=== PATIENT | female | born 1980 | race African-American/Black ===

== ENCOUNTER 2017-12-06 18:48 | Emergency (ER) | payer MEDICAID ==
[~2017-12-06] VITALS: Ht 167.6 cm; Wt 113.4 kg
[2017-12-06] MEDS ORDERED: Norco 5mg/325mg tab ORAL ONE (20:00)
--- NOTE | 2017-12-06 20:31 | Emergency Room Report ---
History of Present Illness General Chief Complaint: General Complaint Source: Patient Present Illness HPI 37-year-old female presents to the emergency department complaining of bilateral knee pain that is 8 out of 10 in severity with associated swelling 1 week. Patient reports symptoms exacerbated upon ordered amount of walking lately. Patient denies trauma or fall she denies erythema, increased temperature palpation or recent open wounds. She reports intermittent swelling of her ankles. She denies history of high blood pressure. Patient also has a second complaint of 10 out of 10 in severity acute onset of left upper molar pain 3 days. Patient reports that she had cavity that required feeling that she never received. Patient reports tenderness to the tooth she denies swelling of the gums. Denies fevers or chills. Denies swollen tender lymph nodes. Denies paresthesias. She denies posterior calf pain. Allergies: Coded Allergies: No Known Allergies (Unverified , 12/06/17) Patient History Past Medical History: see triage record Past Surgical History: none Pertinent Family History: none Now: No Reviewed Nursing Documentation: PMH: Agreed; PSxH: Agreed Nursing Documentation-PMH Past Medical History: No History, Except For Review of Systems All Other Systems: negative except mentioned in HPI Physical Exam Vital Signs Date Time Temp Pulse Resp B/P (MAP) Pulse Ox O2 Delivery O2 Flow Rate FiO2 12/06/17 18:54 98.3 82 20 99 Room Air 98.2 Sp02 EP Interpretation: reviewed, normal General Appearance: no apparent distress, alert, GCS 15, non-toxic Head: normocephalic, atraumatic ENT: hearing grossly normal, normal voice, TMs + canals normal, uvula midline, moist mucus membranes, nasal congestion, other - TTP to the 1st upper molar on the left side. no fluctuance about the gum line. tenderness to percussion. Neck: full range of motion Respiratory: lungs clear, normal breath sounds, speaking full sentences Cardiovascular #1: regular rate, rhythm, no edema, normal capillary refill Musculoskeletal: back normal, gait/station normal, normal range of motion, non- tender, swelling - Bilateral anterior knees, palpable effusion, no increased laxity of the joints, no erythema, no open wounds, no palpable pulse posteriorly , FROM, no clicking or grinding. Neurologic: alert, oriented x3, responsive, motor strength/tone normal, sensory intact, normal gait, speech normal, grossly normal Psychiatric: judgement/insight normal Skin: normal color, no rash, warm/dry, well hydrated Medical Decision Making PA Attestation Dr. Sterling is my supervising Physician whom patient management has been discussed with. Diagnostic Impression: Primary Impression: Bilateral knee effusions Additional Impression: Acute pulpitis ER Course 37-year-old female presents to the emergency department complaining of bilateral knee pain that is 8 out of 10 in severity with associated swelling 1 week. Patient reports symptoms exacerbated upon ordered amount of walking lately. Patient denies trauma or fall she denies erythema, increased temperature palpation or recent open wounds. She reports intermittent swelling of her ankles. She denies history of high blood pressure. Patient also has a second complaint of 10 out of 10 in severity acute onset of left upper molar pain 3 days. Patient reports that she had cavity that required feeling that she never received. Patient reports tenderness to the tooth she denies swelling of the gums. Denies fevers or chills. Denies swollen tender lymph nodes. Denies paresthesias. She denies posterior calf pain. Ddx considered but are not limited to Fracture, dislocation, contusion, Sprain/ Strain/Spasm, dental abscess, orbital cellulitis, d/l tooth, dental pain. trigeminal neuralgia. Vital signs: are WNL, pt. is afebrile H&PE are most consistent with musculoskeletal injury will perform imaging to r/ o fractures/dislocations. ORDERS: - X-ray Knees Bilateral 3 views each - negative for fx, Dislocation, or significant soft tissue injury, --- Effusions noted bilaterally -per preliminary read in ED, and signed by JOVON Cuello, my supervising physician has reviewed, and agrees with my interpretation. ED INTERVENTIONS: - Pain medication PO - Antonio wrap applied to the right knee by principal technical writer Daniela. Pt. remains neurovascularly intact. -Antonio wrap applied to the left knee by principal technical writer Daniela. Pt. remains neurovascularly intact. DISCHARGE: At this time pt. is stable for d/c to home. Will provide printed patient care instructions, and any necessary prescriptions. Care plan and follow up instructions have been discussed with the patient prior to discharge. Other X-Ray Diagnostic Results Other X-Ray Diagnostic Results #1: X-Ray ordered: Right Knee # of Views/Limited Vs Complete: 3 View Indication: Pain EP Interpretation: Yes PA Xray: Interpretation reviewed, by supervising MD, and agrees with findings. Interpretation: no dislocation, no soft tissue swelling, no fractures, other - Effusion noted. Impression: Other - effusion Electronically Signed by: Kell Cuello PA-C Other X-Ray Diagnostic Results #2: X-Ray ordered: Left Knee # of Views/Limited Vs Complete: 3 View Indication: Pain EP Interpretation: Yes PA Xray: Interpretation reviewed, by supervising MD, and agrees with findings. Interpretation: no dislocation, no soft tissue swelling, no fractures, other - knee effusion Impression: Other - effusion Electronically Signed by: Kell Cuello PA-C Last Vital Signs Date Time Temp Pulse Resp B/P (MAP) Pulse Ox O2 Delivery O2 Flow Rate FiO2 12/06/17 19:58 98.2 12/06/17 18:57 20 99 Room Air 12/06/17 18:54 82 Disposition: HOME, SELF-CARE Condition: Stable Scripts Leg Brace (KNEE SUPPORT) 1 Each Each EACH MC DAILY, #2 Prov: Kell Cuello 12/06/17 Comp.stocking,Knee,Regular,Lrg (TRUFORM COMPRESSION STOCKING) 1 Each Each EA MC DAILY, #2 Prov: Kell Cuello.A. 12/06/17 Ibuprofen* (MOTRIN*) 600 Mg Tablet 600 MG ORAL THREE TIMES A DAY, #20 TAB 0 Refills Prov: Kell Cuello.AVenkat 12/06/17 Amoxicillin* (AMOXIL*) 500 Mg Capsule 500 MG ORAL BID for 7 Days, #14 CAP Prov: Kell CuelloAVenkat 12/06/17 Referrals: NOT CHOSEN IPA/,REFERRING (PCP) Patient Instructions: Dental Pain, Knee Effusion, [id number] Additional Instructions: Take medications as directed. Follow up with a Primary Care Provider in 3-5 days, even if your symptoms have resolved. Follow up with Dentist in 3-5 days as well --Please review list of primary care clinics, if you do not already have a primary care provider Return sooner to ED if new symptoms occur, or current symptoms become worse. - Please note that this Emergency Department Report was dictated using [employer] information clerk technology software, occasionally this can lead to erroneous entry secondary to interpretation by the dictation equipment. Kell Cuello December 06, 2017 20:31
[2017-12-06] MEDS ORDERED: TRUFORM COMPRE1 EACH MC (20:33)
[2017-12-06] MEDS ORDERED: KNEE SUPPORT1 EACH MC (20:33)
[2017-12-06] MEDS ORDERED: AMOXICILLIN500 MG ORAL (20:33)
[2017-12-06] MEDS ORDERED: IBUPROFEN600 MG ORAL (20:33)
[2017-12-06 20:40] VITALS: BP 0/0
--- NOTE | 2017-12-07 10:45 | Diagnostic Imaging Report ---
Indication: Pain Knee pain/trauma 3 views of the right knee were obtained. Findings: No acute fracture, malalignment, or joint effusion are identified. Joint space is relatively well-maintained. Impression: Negative for acute findings.
--- NOTE | 2017-12-07 10:45 | Diagnostic Imaging Report ---
Indication: Pain 3 views of the left knee were obtained. Findings: No acute fracture, malalignment, or joint effusion are identified. Joint space is relatively well-maintained. Impression: Negative for acute injury
== END 2017-12-06 20:40 | disposition home or self-care (01) ==
LOC: EMR 19:25
DX: M25.462 Effusion, left knee (principal); M25.461 Effusion, right knee; K04.01 Reversible pulpitis; M25.562 Pain in left knee; M25.561 Pain in right knee
CPT/HCPCS: 99284

== ENCOUNTER 2018-03-01 22:25 | Inpatient (IN) | payer MEDICAID ==
[~2018-03-01] VITALS: Ht 167.6 cm; Wt 108.9 kg
[~2018-03-01 22:25] MED LIST: AMOXICILLIN500 MG ORAL; IBUPROFEN600 MG ORAL; KNEE SUPPORT1 EACH MC; TRUFORM COMPRE1 EACH MC
[2018-03-01 22:52] VITALS: BP 136/79
--- NOTE | 2018-03-01 23:10 | Emergency Room Report ---
History of Present Illness General Chief Complaint: Abdominal Pain Source: Patient Present Illness HPI Patient presents with abdominal pain. She states it began earlier today. It is severe at this time. She feels it from her back radiating to her abdomen. It's 10/10 pain and constant at this time. She has nausea but hasn't vomited. She denies any diarrhea or constipation. She denies any fever or dysuria. Her last period was last month and normal for her. She's never had pain like this before. She denies renal stones, diverticulitis. No family history of these known. She is status post cholecystectomy. This feels like when she had to be rushed to the hospital for emergency surgery. The patient was seen here for bilateral knee pain on November 26 and was given amoxicillin and Motrin. She's not taken any medication today. Allergies: Coded Allergies: Shrimp (Verified Allergy, Unknown, Throat swelling, difficulty breathing , 03/02/18) Patient History Past Medical History: see triage record Past Surgical History: micheal Social History: Reports: smoking, alcohol use - social Social History Narrative from home - accompanied by children Last Menstrual Period: last week Now: No Reviewed Nursing Documentation: PMH: Agreed; PSxH: Agreed Review of Systems All Other Systems: negative except mentioned in HPI Physical Exam Vital Signs Date Time Temp Pulse Resp B/P (MAP) Pulse Ox O2 Delivery O2 Flow Rate FiO2 03/01/18 22:37 98.4 82 18 136/79 100 Room Air 98.4 Sp02 EP Interpretation: reviewed, normal General Appearance: well appearing, mild distress Head: normocephalic Eyes: bilateral eye normal inspection, bilateral eye PERRL ENT: moist mucus membranes Neck: supple Respiratory: lungs clear, normal breath sounds Cardiovascular #1: regular rate, rhythm Cardiovascular #2: 2+ radial (R) Gastrointestinal: normal inspection, normal bowel sounds, no mass, non- distended, tenderness Genitourinary: no CVA tenderness Musculoskeletal: back normal, normal range of motion, other Neurologic: alert, oriented x3, motor strength/tone normal, DTRs symmetric, sensory intact, speech normal, grossly normal Psychiatric: anxious - In pain Skin: normal inspection, warm/dry Medical Decision Making Diagnostic Impression: Primary Impression: Flank pain Additional Impressions: Leukocytosis Qualified Codes: D72.829 - Elevated white blood cell count, unspecified Abdominal pain Qualified Codes: R10.32 - Left lower quadrant pain ER Course Patient presents with left flank and lower abdominal pain. Differential includes renal stone, diverticulitis, ovarian cyst, torsion, ectopic, lumbar strain amongst others. The way she describes the pain renal stone is high on the list. Evaluation will be with labs and CT scan of the abdomen. She'll be treated with IV hydration and analgesia. Patient still has severe pain. "No different" Morphine 8 mg is given IV. Leukocytosis is present. Other labs are pending. The patient still has severe pain after 12 mg of morphine. Guarding LLQ. No rebound. "Still severe" Fentanyl 100 mg is ordered. Still. with significant pain. CT no ID pathology. Ativan, reglan and benadryl ordered. Some relief with these. Admit for observation and pain control Dr. Mcwilliams. Laboratory Tests Test 03/01/18 22:49 White Blood Count 14.6 K/UL (4.8-10.8) H Red Blood Count 4.23 M/UL (4.20-5.40) Hemoglobin 13.0 G/DL (12.0-16.0) Hematocrit 38.2 % (37.0-47.0) Mean Corpuscular Volume 90 FL (80-99) Mean Corpuscular Hemoglobin 30.8 PG (27.0-31.0) Mean Corpuscular Hemoglobin Concent 34.1 G/DL (32.0-36.0) Red Cell Distribution Width 13.4 % (11.6-14.8) Platelet Count 307 K/UL (150-450) Mean Platelet Volume 6.1 FL (6.5-10.1) L Neutrophils (%) (Auto) 64.5 % (45.0-75.0) Lymphocytes (%) (Auto) 28.6 % (20.0-45.0) Monocytes (%) (Auto) 5.6 % (1.0-10.0) Eosinophils (%) (Auto) 0.5 % (0.0-3.0) Basophils (%) (Auto) 0.8 % (0.0-2.0) Urine Color Pale yellow Urine Appearance Clear Urine pH 7 (4.5-8.0) Urine Specific [place] 1.010 (1.005-1.035) Urine Protein Negative (NEGATIVE) Urine Glucose (UA) Negative (NEGATIVE) Urine Ketones Negative (NEGATIVE) Urine Occult Blood Negative (NEGATIVE) Urine Nitrite Negative (NEGATIVE) Urine Bilirubin Negative (NEGATIVE) Urine Urobilinogen Normal MG/DL (0.0-1.0) Urine Leukocyte Esterase 1+ (NEGATIVE) H Urine RBC 0-2 /HPF (0 - 2) Urine WBC 0-2 /HPF (0 - 2) Urine Squamous Epithelial Cells Few /LPF (NONE/OCC) Urine Bacteria None /HPF (NONE) Urine HCG, Qualitative Negative (NEGATIVE) Sodium Level 142 MMOL/L (136-145) Potassium Level 3.7 MMOL/L (3.5-5.1) Chloride Level 108 MMOL/L (98-107) H Carbon Dioxide Level 28 MMOL/L (21-32) Anion Gap 6 mmol/L (5-15) Blood Urea Nitrogen 9 mg/dL (7-18) Creatinine 1.0 MG/DL (0.55-1.30) Estimate Glomerular Filtration Rate > 60 mL/min (>60) Glucose Level 102 MG/DL (74-106) Calcium Level 8.4 MG/DL (8.5-10.1) L Total Bilirubin 0.3 MG/DL (0.2-1.0) Aspartate Amino Transferase (AST) 13 U/L (15-37) L Alanine Aminotransferase (ALT) 19 U/L (12-78) Alkaline Phosphatase 87 U/L (46-116) Total Protein 6.7 G/DL (6.4-8.2) Albumin 3.1 G/DL (3.4-5.0) L Globulin 3.6 g/dL Albumin/Globulin Ratio 0.9 (1.0-2.7) L Lipase 126 U/L (73-393) CT/MRI/US Diagnostic Results CT/MRI/US Diagnostic Results : Imaging Test Ordered: abd pelvis Impression "normal enhanced CT abd/pelvis" Status: improved Disposition: ADMITTED INPATIENT Condition: Serious Mario Coelho M.D. Mar 01, 2018 23:10
[2018-03-01 23:15] LABS: BASOPHILS % (AUTO) 0.8 % (0.0-2.0); EOSINOPHILS % (AUTO) 0.5 % (0.0-3.0); HEMATOCRIT 38.2 % (37.0-47.0); LYMPHOCYTES % (AUTO) 28.6 % (20.0-45.0); MEAN CORPUSCULAR VOLUME 90 FL (80-99); MONOCYTES % (AUTO) 5.6 % (1.0-10.0); NEUTROPHILS % (AUTO) 64.5 % (45.0-75.0); PLATELET COUNT 307 K/UL (150-450); RED BLOOD COUNT 4.23 M/UL (4.20-5.40); RED CELL DISTRIBUTION WIDTH 13.4 % (11.6-14.8); WHITE BLOOD COUNT 14.6 K/UL (4.8-10.8)
[2018-03-01] MEDS ORDERED: Ketorolac 30mg Inj IV ONE (23:15)
[2018-03-01] MEDS ORDERED: Morphine Sulfate 4mg/ml Inj (IV USE ONLY) IVP ONE ×2 (23:15→23:45)
[2018-03-01] MEDS ORDERED: Isovue-300 100ml vial INJ PRN (23:15)
[2018-03-01 23:18] LABS: APPEARANCE,URINE CLEAR; BILIRUBIN, URINE NEGATIVE (NEGATIVE); COLOR,URINE PALE YELLOW; GLUCOSE, URINE (UA) NEGATIVE (NEGATIVE); KETONES,URINE NEGATIVE (NEGATIVE); LEUKOCYTE ESTERASE ,URINE 1+ (NEGATIVE); NITRITE,URINE NEGATIVE (NEGATIVE); PH,URINE 7 (4.5-8.0); PROTEIN,URINE NEGATIVE (NEGATIVE); UROBILINOGEN,URINE NORMAL MG/DL (0.0-1.0)
[2018-03-01 23:26] LABS: ANION GAP 6 mmol/L (5-15); BLOOD UREA NITROGEN 9 mg/dL (7-18); CALCIUM 8.4 MG/DL (8.5-10.1); CARBON DIOXIDE 28 MMOL/L (21-32); CHLORIDE 108 MMOL/L (98-107); POTASSIUM 3.7 MMOL/L (3.5-5.1); SODIUM 142 MMOL/L (136-145)
[2018-03-01] MEDS ORDERED: NKM (23:26)
[2018-03-01 23:30] LABS: ALANINE AMINOTRANSFERASE 19 U/L (12-78); ALBUMIN 3.1 G/DL (3.4-5.0); ALBUMIN/GLOBULIN RATIO 0.9 (1.0-2.7); ALKALINE PHOSPHATASE 87 U/L (46-116); ASPARTATE AMINO TRANSFERASE 13 U/L (15-37); BILIRUBIN,TOTAL 0.3 MG/DL (0.2-1.0)
[2018-03-02] VITALS (7 sets, daily range): BP systolic 101–130; BP diastolic 59–101
[2018-03-02] MEDS ORDERED: fentaNYL 100 mcg/2 mL IV ONE (00:45)
[2018-03-02] MEDS ORDERED: LORazepam Inj 2mg/ml 1ml IV ONE (01:45)
[2018-03-02] MEDS ORDERED: DiphenhydrAMINE 50mg/ml Inj IVP ONE (01:45)
[2018-03-02] MEDS ORDERED: Metoclopramide 10mg/2ml Inj IVP ONE (01:45)
[2018-03-02] MEDS ORDERED: cefTRIAXone 1 GM in NS 55 ML IVPB ONE (02:15)
[2018-03-02] MEDS ORDERED: Morphine Sulfate 4mg/ml Inj (IV USE ONLY) IVP PRN (03:30)
[2018-03-02] MEDS ORDERED: cefTRIAXone 2 GM in D5W 55 ML IVPB SCH ×2 (03:30→14:00)
[2018-03-02 08:14] LABS: BASOPHILS % (AUTO) 0.4 % (0.0-2.0); EOSINOPHILS % (AUTO) 0.9 % (0.0-3.0); HEMATOCRIT 35.7 % (37.0-47.0); HEMOGLOBIN 12.2 G/DL (12.0-16.0); MEAN CORPUSCULAR VOLUME 91 FL (80-99); MONOCYTES % (AUTO) 6.6 % (1.0-10.0); NEUTROPHILS % (AUTO) 61.2 % (45.0-75.0); PLATELET COUNT 265 K/UL (150-450); RED BLOOD COUNT 3.91 M/UL (4.20-5.40); RED CELL DISTRIBUTION WIDTH 13.2 % (11.6-14.8); WHITE BLOOD COUNT 12.9 K/UL (4.8-10.8)
[2018-03-02 08:37] LABS: ANION GAP 1 mmol/L (5-15); BLOOD UREA NITROGEN 7 mg/dL (7-18); CARBON DIOXIDE 28 MMOL/L (21-32); CHLORIDE 108 MMOL/L (98-107); CHOLESTEROL 124 MG/DL (< 200); CREATININE 0.8 MG/DL (0.55-1.30); HDL CHOLESTEROL 34 MG/DL (40-60); SODIUM 137 MMOL/L (136-145); TRIGLYCERIDES 146 MG/DL (30-150)
[2018-03-02] MEDS ORDERED: Heparin 5000 units/ml inj SUBQ SCH (09:00)
--- NOTE | 2018-03-02 09:46 | Diagnostic Imaging Report ---
Clinical Indication: Abdominal pain for one day Technique: Patient ingested a small amount of oral contrast. IV administration nonionic contrast. Venous phase spiral acquisition obtained through the abdomen and pelvis. Multiplanar reconstructions were generated. Total dose length product 1060.93 mGycm. CTDIvol(s) 19.28 mGy. Dose reduction achieved using automated exposure control Comparison: none Findings: The appendix is normal. No evidence of diverticulosis or diverticulitis. The stomach is somewhat distended by contrast and retained food. The distal esophagus is unremarkable. The duodenum is unremarkable. No small bowel distention. No free or loculated intraperitoneal gas or fluid. The gallbladder is surgically absent. No biliary ductal dilatation. The liver, pancreas, spleen, adrenals are all unremarkable. The kidneys demonstrate a 1 cm cyst in the right upper pole, and subcentimeter low-attenuation lesions on the left which are too small to characterize. No retroperitoneal or mesenteric mass or adenopathy. No pelvic mass or adenopathy. Uterus and ovaries are unremarkable. Unremarkable bladder. The included lung bases demonstrate minimal posterior dependent atelectatic changes. The bones are unremarkable. Impression: No acute abnormality Surgically absent gallbladder Right renal cysts. Subcentimeter low-attenuation left renal lesions, too small to characterize, most likely benign simple cortical cysts and no further follow-up necessary Posterior dependent pulmonary atelectatic changes This agrees with the preliminary interpretation provided overnight by [facility] teleradiology service, with minor variations. The CT scanner at [facility] is accredited by the [employer] and the scans are performed using protocols designed to limit radiation exposure to as low as reasonably achievable to attain images of sufficient resolution adequate for diagnostic evaluation.
[2018-03-02] MEDS ORDERED: Ketorolac 30mg Inj IV PRN (10:15)
[2018-03-02] MEDS ORDERED: Ketorolac 30mg Inj IV SCH (10:15)
[2018-03-02] MEDS ORDERED: DiphenhydrAMINE 50mg/ml Inj IVP PRN (11:30)
--- NOTE | 2018-03-02 14:44 | GI Initial Consult Note ---
History of Present Illness General Date patient seen: Mar 04, 2018 Time patient seen: 14:35 Reason for Hospitalization: Abdominal Pain Referring physician: IRAIS HINOJOSA Reason for Consultation: ABDOMINAL PAIN Present Illness HPI Pt presents with abdominal pain. Speech began earlier today. It severe at this time. She feels it from her back radiating to her abdomen. It's 10/10 pain and constant at this time. She has nausea but hasn't vomited. She denies any diarrhea or constipation. She denies any fever or dysuria. Her last period was last month and normal for her. She is status post cholecystectomy. The patient was seen here for bilateral knee pain on November 26 and was given amoxicillin and Motrin. She's not taken any medication today. GI consulted for abdominal pain. Pt was seen, awake A&Ox4 NAD with no active N/ V/D. Has LLQ and lower abdominal pain with radiation to the back. States the pain has slight improved 8/10. Initial onset was yesterday. Had no episodes of vomiting. Had normal BM yesterday, however felt constipated this morning. Denies any unintentional weight loss or changes in dietary habits nor recent travels. No history of endoscopy / colonoscopy. History of cholecystectomy. Tobacco and social ETOH user. Labs show some leukocytosis, otherwise mainly unremarkable. CT AP reviewed with no acute process. Home Meds Active Scripts Leg Brace (KNEE SUPPORT) 1 Each Each, EACH MC DAILY, #2 Prov:Kell Cuello 12/06/17 Comp.stocking,Knee,Regular,Lrg (TRUFORM COMPRESSION STOCKING) 1 Each Each, EA MC DAILY, #2 Prov:Kell Cuello 12/06/17 Ibuprofen* (MOTRIN*) 600 Mg Tablet, 600 MG ORAL THREE TIMES A DAY, #20 TAB 0 Refills Prov:Kell Cuello 12/06/17 Amoxicillin* (AMOXIL*) 500 Mg Capsule, 500 MG ORAL BID for 7 Days, #14 CAP Prov:Kell Cuello 12/06/17 Reported Medications No Known Medications* (NKM - No Known Medications*) ., 0 ., 0 Refills 03/01/18 Med list reviewed/reconciled: Yes Allergies: Coded Allergies: Shrimp (Verified Allergy, Unknown, Throat swelling, difficulty breathing , 03/02/18) Patient History History Provided By: Patient, Medical Record PMH Narrative Past Medical History: see triage record Social History Narrative from home Last Menstrual Period: last week Now: No Social History: Reports: smoking Review of Systems All Other Systems: negative except mentioned in HPI Physical Exam Vital Signs Date Time Temp Pulse Resp B/P (MAP) Pulse Ox O2 Delivery O2 Flow Rate FiO2 03/01/18 22:37 98.4 82 18 136/79 100 Room Air 98.4 Sp02 EP Interpretation: reviewed, normal Labs Laboratory Tests Test 03/01/18 22:49 03/02/18 07:35 White Blood Count 14.6 K/UL (4.8-10.8) H 12.9 K/UL (4.8-10.8) H Red Blood Count 4.23 M/UL (4.20-5.40) 3.91 M/UL (4.20-5.40) L Hemoglobin 13.0 G/DL (12.0-16.0) 12.2 G/DL (12.0-16.0) Hematocrit 38.2 % (37.0-47.0) 35.7 % (37.0-47.0) L Mean Corpuscular Volume 90 FL (80-99) 91 FL (80-99) Mean Corpuscular Hemoglobin 30.8 PG (27.0-31.0) 31.3 PG (27.0-31.0) H Mean Corpuscular Hemoglobin Concent 34.1 G/DL (32.0-36.0) 34.2 G/DL (32.0-36.0) Red Cell Distribution Width 13.4 % (11.6-14.8) 13.2 % (11.6-14.8) Platelet Count 307 K/UL (150-450) 265 K/UL (150-450) Mean Platelet Volume 6.1 FL (6.5-10.1) L 6.4 FL (6.5-10.1) L Neutrophils (%) (Auto) 64.5 % (45.0-75.0) 61.2 % (45.0-75.0) Lymphocytes (%) (Auto) 28.6 % (20.0-45.0) 31.0 % (20.0-45.0) Monocytes (%) (Auto) 5.6 % (1.0-10.0) 6.6 % (1.0-10.0) Eosinophils (%) (Auto) 0.5 % (0.0-3.0) 0.9 % (0.0-3.0) Basophils (%) (Auto) 0.8 % (0.0-2.0) 0.4 % (0.0-2.0) Urine Color Pale yellow Urine Appearance Clear Urine pH 7 (4.5-8.0) Urine Specific [place] 1.010 (1.005-1.035) Urine Protein Negative (NEGATIVE) Urine Glucose (UA) Negative (NEGATIVE) Urine Ketones Negative (NEGATIVE) Urine Occult Blood Negative (NEGATIVE) Urine Nitrite Negative (NEGATIVE) Urine Bilirubin Negative (NEGATIVE) Urine Urobilinogen Normal MG/DL (0.0-1.0) Urine Leukocyte Esterase 1+ (NEGATIVE) H Urine RBC 0-2 /HPF (0 - 2) Urine WBC 0-2 /HPF (0 - 2) Urine Squamous Epithelial Cells Few /LPF (NONE/OCC) Urine Bacteria None /HPF (NONE) Urine HCG, Qualitative Negative (NEGATIVE) Sodium Level 142 MMOL/L (136-145) 137 MMOL/L (136-145) Potassium Level 3.7 MMOL/L (3.5-5.1) 4.0 MMOL/L (3.5-5.1) Chloride Level 108 MMOL/L (98-107) H 108 MMOL/L (98-107) H Carbon Dioxide Level 28 MMOL/L (21-32) 28 MMOL/L (21-32) Anion Gap 6 mmol/L (5-15) 1 mmol/L (5-15) L Blood Urea Nitrogen 9 mg/dL (7-18) 7 mg/dL (7-18) Creatinine 1.0 MG/DL (0.55-1.30) 0.8 MG/DL (0.55-1.30) Estimat Glomerular Filtration Rate > 60 mL/min (>60) > 60 mL/min (>60) Glucose Level 102 MG/DL (74-106) 97 MG/DL (74-106) Calcium Level 8.4 MG/DL (8.5-10.1) L 8.0 MG/DL (8.5-10.1) L Total Bilirubin 0.3 MG/DL (0.2-1.0) Aspartate Amino Transf (AST/SGOT) 13 U/L (15-37) L Alanine Aminotransferase (ALT/SGPT) 19 U/L (12-78) Alkaline Phosphatase 87 U/L (46-116) Total Protein 6.7 G/DL (6.4-8.2) Albumin 3.1 G/DL (3.4-5.0) L Globulin 3.6 g/dL Albumin/Globulin Ratio 0.9 (1.0-2.7) L Lipase 126 U/L (73-393) Hemoglobin A1c 6.0 % (4.3-6.0) Triglycerides Level 146 MG/DL (30-150) Cholesterol Level 124 MG/DL (< 200) LDL Cholesterol 82 mg/dL (<100) HDL Cholesterol 34 MG/DL (40-60) L Cholesterol/HDL Ratio 3.6 (3.3-4.4) General Appearance: well appearing, no apparent distress, alert, obese Head: normocephalic EENT: PERRL/EOMI, normal ENT inspection Neck: supple Respiratory: normal breath sounds, no respiratory distress Cardiovascular: normal rate Gastrointestinal: normal inspection, non tender, soft, normal bowel sounds, non -distended Rectal: deferred Genitourinary: no CVA tenderness Musculoskeletal: normal inspection, back normal Neurologic: normal inspection, alert, oriented x3, responsive Psychiatric: normal inspection, judgement/insight normal, memory normal Skin: normal inspection, normal color, no rash, warm/dry, palpation normal, well hydrated Lymphatic: normal inspection, no adenopathy Current Medications Current Medications Medications (Trade) Dose Ordered Sig/Salma Route PRN Reason Start Time Stop Time Status Last Admin Dose Admin Barium Sulfate (Readi-Cat 2) 450 ml NOW PRN ORAL Radiology Procedure 03/01/18 23:15 03/03/18 23:06 Ceftriaxone Sodium 2 gm/ Dextrose 55 ml @ 110 mls/hr Q24H IVPB 03/02/18 14:00 03/09/18 13:59 03/02/18 13:28 Diphenhydramine HCl (Benadryl) 25 mg Q6H PRN IVP Itching 03/02/18 11:30 04/01/18 11:29 03/02/18 11:59 Heparin Sodium (Porcine) (Heparin 5000 units/ml) 5,000 units EVERY 12 HOURS SUBQ 03/02/18 09:00 04/01/18 08:59 03/02/18 08:08 Iopamidol (Isovue-300 100ml) 100 ml NOW PRN INJ Radiology Procedure 03/01/18 23:15 Ketorolac Tromethamine (Toradol 30mg) 30 mg Q12H PRN IV For Pain 03/02/18 10:15 03/07/18 10:14 03/02/18 10:21 Ondansetron HCl (Zofran) 4 mg Q6H PRN IVP Nausea & Vomiting 03/02/18 03:30 04/01/18 03:29 Pantoprazole (Protonix) 40 mg ACBREAKFAST ORAL 03/02/18 06:30 04/01/18 06:29 03/02/18 05:45 GI: Plan Problems: (1) Abdominal pain (2) Leukocytosis Plan CT AP reviewed >> unremarkable abdominal pain unknown etiology seems to be improving at this moment, differentials include abdominal gas pain, constipation, gastroenteritis okay for DC per GI standpoint if patient tolerates dinner okay to advance diet zofran prn pain mgmt dietary and smoking cessation education given to the patient bowel regime ok to dc ppi patient instructed to return to ED if symptoms become worse Discussed with Dr. Garcia. Thank you for this patient referral, we will follow. The patient was seen and examined at bedside and all new and available data was reviewed in the patients chart. I agree with the above findings, impression and plan. (Patient seen earlier today. Signature stamp does not reflect patient encounter time.). - [facility] ASSISTANT PROFESSOR Mar 02, 2018 14:44
--- NOTE | 2018-03-02 15:38 | General Progress Note ---
Assessment/Plan Assessment/Plan S: I am ok O: appears comfortable, no sever pain PHYSICAL EXAMINATION: HEAD AND NECK: Atraumatic and normocephalic. CHEST: Clear to auscultation. HEART: S1 and S2. Regular rate and rhythm. ABDOMEN: Soft. MUSCULOSKELETAL: No gross focal motor deficit. NEUROLOGIC: The patient is awake, alert, and oriented x3. LABORATORY AND DIAGNOSTIC DATA: Imaging, dated 03/02/[address] scan of the abdomen, which is unremarkable for acute pathology. Labs dated 03/01/2018 shows WBC 13.6, hemoglobin of 13, and platelet count of 300. Sodium 140, potassium 3.7, BUN 9, creatinine 1. AST 13 and lipase of 126. Urine unremarkable. ASSESSMENT: 1. Abdominal pain - unremarkable examination. 2. Leukocytosis. No gross evidence of acute active infection. 3. Opiate narcotic - seeking behavior. 4. GI and DVT prophylaxis. Plan: GI notified. current mgt Subjective Allergies: Coded Allergies: Shrimp (Verified Allergy, Unknown, Throat swelling, difficulty breathing , 03/02/18) Objective Last 24 Hour Vital Signs Date Time Temp Pulse Resp B/P (MAP) Pulse Ox O2 Delivery O2 Flow Rate FiO2 03/02/18 11:22 97.5 72 18 114/74 (87) 100 97.5 03/02/18 10:51 97.3 03/02/18 10:21 97.3 03/02/18 08:16 Room Air 03/02/18 08:00 97.3 77 20 101/59 (73) 97 97.3 03/02/18 04:00 98.3 90 16 130/92 (105) 97 98.3 03/02/18 03:12 Room Air 03/02/18 02:55 98.4 81 18 110/69 100 Room Air 98.4 03/02/18 02:50 97.9 90 18 121/101 (108) 96 97.9 03/02/18 02:34 98.4 81 18 110/69 100 Room Air 98.4 03/02/18 02:13 98.4 03/02/18 00:51 98.4 03/02/18 00:37 98.4 88 18 130/78 100 Room Air 98.4 03/02/18 00:13 98.4 03/01/18 23:53 98.4 03/01/18 23:51 98.4 03/01/18 23:50 98.4 03/01/18 23:21 98.4 03/01/18 23:20 98.4 03/01/18 22:52 98.4 84 18 136/79 100 Room Air 98.4 03/01/18 22:37 98.4 82 136/79 100 Room Air 98.4 Intake and Output 03/01/18 03/02/18 19:00 07:00 Intake Total 1800 ml Output Total 0 ml Balance 1800 ml Intake Oral 500 ml IV Total 1300 ml Output Urine Total 0 ml # Voids 1 Laboratory Tests 03/01/18 22:49: White Blood Count 14.6H, Red Blood Count 4.23, Hemoglobin 13.0, Hematocrit 38.2 , Mean Corpuscular Volume 90, Mean Corpuscular Hemoglobin 30.8, Mean Corpuscular Hemoglobin Concent 34.1, Red Cell Distribution Width 13.4, Platelet Count 307, Mean Platelet Volume 6.1L, Neutrophils (%) (Auto) 64.5, Lymphocytes ( %) (Auto) 28.6, Monocytes (%) (Auto) 5.6, Eosinophils (%) (Auto) 0.5, Basophils (%) (Auto) 0.8, Urine Color Pale yellow, Urine Appearance Clear, Urine pH 7, Urine Specific [place] 1.010, Urine Protein Negative, Urine Glucose (UA) Negative, Urine Ketones Negative, Urine Occult Blood Negative, Urine Nitrite Negative, Urine Bilirubin Negative, Urine Urobilinogen Normal, Urine Leukocyte Esterase 1+H, Urine RBC 0-2, Urine WBC 0-2, Urine Squamous Epithelial Cells Few , Urine Bacteria None, Urine HCG, Qualitative Negative, Sodium Level 142, Potassium Level 3.7, Chloride Level 108H, Carbon Dioxide Level 28, Anion Gap 6, Blood Urea Nitrogen 9, Creatinine 1.0, Estimat Glomerular Filtration Rate > 60, Glucose Level 102, Calcium Level 8.4L, Total Bilirubin 0.3, Aspartate Amino Transf (AST/SGOT) 13L, Alanine Aminotransferase (ALT/SGPT) 19, Alkaline Phosphatase 87, Total Protein 6.7, Albumin 3.1L, Globulin 3.6, Albumin/Globulin Ratio 0.9L, Lipase 126 03/02/18 07:35: White Blood Count 12.9H, Red Blood Count 3.91L, Hemoglobin 12.2, Hematocrit 35.7L, Mean Corpuscular Volume 91, Mean Corpuscular Hemoglobin 31.3H, Mean Corpuscular Hemoglobin Concent 34.2, Red Cell Distribution Width 13.2, Platelet Count 265, Mean Platelet Volume 6.4L, Neutrophils (%) (Auto) 61.2, Lymphocytes ( %) (Auto) 31.0, Monocytes (%) (Auto) 6.6, Eosinophils (%) (Auto) 0.9, Basophils (%) (Auto) 0.4, Sodium Level 137, Potassium Level 4.0, Chloride Level 108H, Carbon Dioxide Level 28, Anion Gap 1L, Blood Urea Nitrogen 7, Creatinine 0.8, Estimat Glomerular Filtration Rate > 60, Glucose Level 97, Calcium Level 8.0L, Hemoglobin A1c 6.0, Triglycerides Level 146, Cholesterol Level 124, LDL Cholesterol 82, HDL Cholesterol 34L, Cholesterol/HDL Ratio 3.6 Height (Feet): 5 Height (Inches): 6.00 Weight (Pounds): 240 Mavis Mcwilliams MD Mar 02, 2018 15:38
--- NOTE | 2018-03-02 15:38 | History & Physical ---
History and Physical History & Physicial patient is seen and examined. Dictation completed. Dict # [id number] Mavis Mcwilliams MD Mar 02, 2018 15:38
--- NOTE | 2018-03-02 21:32 | History and Physical Report ---
DATE OF ADMISSION: 03/02/2018 SOURCE OF INFORMATION: The patient and EMR. HISTORY OF PRESENT ILLNESS: The patient is a 37-year-old female, complaining of the pain on the left side of abdomen for the last 3 days. The patient describes the pain as severe and acute. Positive for radiation to the left lower quadrant and to the left upper quadrant. The patient denies any diarrhea. Denies any fever or chills. Denies any nausea. At the time of evaluation, the patient denies any chest pain or shortness of breath. No blurry vision. No vomitus. Initial vital signs in the emergency room shows stable blood pressures and the initial blood work is stable and almost normal laboratories. PAST SURGICAL HISTORY: Tubal ligation, C-sections and appendectomy. MEDICATIONS: Current hospital medications including but not limited to, heparin subcutaneous, Protonix once a day, ceftriaxone 2 g daily, Protonix 40 mg daily, ketorolac 30 mg IV q.12 h. FAMILY HISTORY: Reviewed, noncontributory. SOCIAL HISTORY: The patient denies history of illicit drug abuse, smoking or alcohol abuse. REVIEW OF SYSTEMS: All 14 elements of review of systems reviewed, pertinent positive and negative as above. PHYSICAL EXAMINATION: VITAL SIGNS: Blood pressure 100/60, temperature 98.2 degrees, pulse oximetry 98% on room air, temperature 97.3 degrees. HEAD AND NECK: Atraumatic and normocephalic. CHEST: Clear to auscultation. HEART: S1 and S2. Regular rate and rhythm. ABDOMEN: Soft. MUSCULOSKELETAL: No gross focal motor deficit. NEUROLOGIC: The patient is awake, alert, and oriented x3. LABORATORY AND DIAGNOSTIC DATA: Imaging, dated 03/02/[address] scan of the abdomen, which is unremarkable for acute pathology. Labs dated 03/01/2018 shows WBC 13.6, hemoglobin of 13, and platelet count of 300. Sodium 140, potassium 3.7, BUN 9, creatinine 1. AST 13 and lipase of 126. Urine unremarkable. ASSESSMENT: 1. Abdominal pain - unremarkable examination. 2. Leukocytosis. No gross evidence of acute active infection. 3. Opiate narcotic - seeking behavior. 4. GI and DVT prophylaxis. PLAN OF CARE: We will encourage the patient to start p.o. feeding. GI, Dr. Garcia is consulted. Avoid using narcotics. Once cleared by GI, follow up as an outpatient. Mavis Mcwilliams M.D. DR: AN JOB#: [id number] CC: JOSSELIN
--- NOTE | 2018-03-03 12:20 | Discharge Summary ---
Discharge Summary Discharge Summary _ DATE OF ADMISSION: 03/02/2018 DATE OF DISCHARGE: 03/02/2018 REASON FOR ADMISSION: 37 years old female with history of cholecystectomy, presented to emergency department with abdominal pain. She reported nausea, but no vomiting. No diarrhea, no constipation. No fever, no chills, no dysuria. CT of the abdomen and pelvis was negative . Laboratory workup revealed WBC 14.6. Stable hemoglobin and hematocrit . Rest of labs unremarkable . Urinalysis with no evidence of UTI . Urine test negative. Patient admitted with diagnoses of leukocytosis, abdominal pain. CONSULTANTS: GI specialist Dr. Garcia [facility] COURSE: Patient admitted. Patient started on IV fluids. Diet started as tolerated. Antiemetics provided as needed. Pain management was addressed. Narcotics were avoided. GI consult was requested. DVT and GI prophylaxis provided. Diet was further advanced . Patient was able to tolerate diet . GI specialist provided dietary recommendations. Patient was counseled on smoking cessation. Bowel regimen instituted. Patient was stable for discharge home. leukocytosis trending down from 14.6 to 12.9, likely reactive, no evidence of infection,. no fevers. Due to rapid and unexpected improvement in patient's condition, the patient was discharged in one day. FINAL DIAGNOSES: Abdominal pain -resolved Leukocytosis ( likely reactive, trending down) Narcotic seeking behavior DISCHARGE MEDICATIONS: See Medication Reconciliation list. DISCHARGE INSTRUCTIONS: Patient was discharged home Follow up with primary care provider in one week. Patient instructed on return to ED precautions I have been assigned to dictate discharge summary for this account. I was not involved in the patient's management. Jaz Miguel NP Mar 03, 2018 12:20
--- NOTE | 2018-03-05 23:37 | Physician Query ---
--------- THIS DOCUMENT IS A PERMANENT PART OF THE MEDICAL RECORD --------- PLEASE COMPLETE DOCUMENT BEFORE SIGNING Dear Dr. Mavis Mcwilliams Date: _03/05/2018 [employer] Operator/CDS Name: Celia Pagan, TRACEY Exercise your independent professional judgment when responding to the query. Questions asked do not imply a particular answer is desired or expected. We greatly appreciate your clarification on this issue. CLINICAL DOCUMENTATION STATES: The patient is a 37-year-old female, complaining of the pain on the left side of abdomen for the last 3 days. The patient describes the pain as severe and acute. Positive for radiation to the left lower quadrant and to the left upper quadrant. No diarrhea, no constipation. No fever, no chills, no dysuria. CT of the abdomen and pelvis was negative . Final Diagnosis: Abdominal pain. Reactive leukocytosis. Narcotic seeking behavior. Please respond to the following question: Please state the etiology of the patient's abdominal pain, if known. PHYSICIAN RESPONSE: Please also document in your Progress Notes and/or Discharge Summary. MD Cassy Date MTDD
--- NOTE | 2018-03-07 11:28 | General Progress Note ---
Assessment/Plan Assessment/Plan S: my abdomen hurts O: appears comfortable, PHYSICAL EXAMINATION: VITAL SIGNS: Blood pressure 110/60, temperature 98.2 degrees, pulse oximetry 98% on room air, temperature 97.3 degrees. HEAD AND NECK: Atraumatic and normocephalic. CHEST: Clear to auscultation. HEART: S1 and S2. Regular rate and rhythm. ABDOMEN: Soft. MUSCULOSKELETAL: No gross focal motor deficit. NEUROLOGIC: The patient is awake, alert, and oriented x3. LABORATORY AND DIAGNOSTIC DATA: Imaging, dated 03/02/[address] scan of the abdomen, which is unremarkable for acute pathology. Labs dated 03/01/2018 shows WBC 13.6, hemoglobin of 13, and platelet count of 300. Sodium 140, potassium 3.7, BUN 9, creatinine 1. AST 13 and lipase of 126. Urine unremarkable. ASSESSMENT: 1. Abdominal pain - unremarkable examination. 2. Leukocytosis. No gross evidence of acute active infection. 3. Opiate narcotic - seeking behavior. 4. GI and DVT prophylaxis. PLAN OF CARE: We will encourage the patient to start p.o. feeding. Avoid using narcotics. Subjective Allergies: Coded Allergies: Shrimp (Verified Allergy, Unknown, Throat swelling, difficulty breathing , 03/02/18) Objective Height (Feet): 5 Height (Inches): 6.00 Weight (Pounds): 240 Mavis Mcwilliams MD Mar 07, 2018 11:28
== END 2018-03-02 17:55 | disposition home or self-care (01) | DRG 251 ==
LOC: EMR 23:00 → 3E 03-02 01:46 → EDBEDREQ 03-02 02:10
DX: R10.9 Unspecified abdominal pain (principal); D72.829 Elevated white blood cell count, unspecified; Z76.5 Malingerer [conscious simulation]
CPT/HCPCS: 36415; 74177; 80048; 80053; 80061; 81003; 81025; 83036; 83690; 85025; J2405; J2765